=== PATIENT | female | born 1995 | race Caucasian/White ===

== ENCOUNTER 2018-06-09 11:03 | Emergency (ER) | payer BC ==
[~2018-06-09] VITALS: Ht 167.6 cm; Wt 62.0 kg
[~2018-06-09 11:03] MED LIST: IBUP-1573 PO
--- NOTE | 2018-06-09 11:57 | NUR ---
pt is 23 yo female c/o chest pain started today at 0940 while at work, pt said 3 weeks ago she fainted at work, c/o "stabbing chest pain lasts 10 minutes...and then pressure like 5 pound weight on my chest and then i become dizzy", recently established with Dr Oleary and has echo end of month, pt also c/o feeling tired, headache, Dr Pinto at bedside
[2018-06-09 12:03] LABS: BASOPHILS % (AUTO) 0.4 % (0-1); EOSINOPHILS % (AUTO) 0.8 % (0-6); HEMATOCRIT 41.6 % (35.0-45.0); HEMOGLOBIN 14.1 g/dl (12.0-16.0); LYMPHOCYTES # (AUTO) 1.3 X10'3 (1.1-4.8); LYMPHOCYTES % (AUTO) 28.7 % (21-51); MEAN CORPUSCULAR HEMOGLOBIN 32.6 PG (27.0-31.0); MEAN CORPUSCULAR HGB CONC 33.9 g/dL (33.0-36.5); MEAN CORPUSCULAR VOLUME 95.9 FL (78-98); MEAN PLATELET VOLUME 7.2 FL (7.4-10.4); MONOCYTES # (AUTO) 0.5 X10'3 (0-0.9); MONOCYTES % (AUTO) 10.2 % (2-12); NEUTROPHILS # (AUTO) 2.8 X10'3 (1.8-7.7); NEUTROPHILS % (AUTO) 59.9 % (42-75); PLATELET COUNT 220 X10'3 (140-440); RED BLOOD COUNT 4.34 X10'6 (4.20-5.60); RED CELL DISTRIBUTION WIDTH 13.2 % (11.5-14.5); WHITE BLOOD COUNT 4.6 X10'3 (4.5-11.0)
[2018-06-09 12:16] LABS: ALANINE AMINOTRANSFERASE 37 U/L (12-78); ALBUMIN/GLOBULIN RATIO 1.2 (1.1-1.5); ALKALINE PHOSPHATASE 66 IU/L (46-116); ANION GAP 9 (8-16); ASPARTATE AMINO TRANSFERASE 34 U/L (10-37); BILIRUBIN,TOTAL 0.7 MG/DL (0.1-1.0); BLOOD UREA NITROGEN 7 MG/DL (7-18); BUN/CREATININE RATIO 8.5 (6.6-38.0); CHLORIDE 103 MMOL/L (99-107); CREATININE 0.82 MG/DL (0.40-0.90); GLUCOSE 118 MG/DL (70-104); POTASSIUM 3.4 MMOL/L (3.5-5.1); SODIUM 139 MMOL/L (135-145); TOTAL CARBON DIOXIDE 26.9 MMOL/L (24-32); TOTAL PROTEIN 7.3 G/DL (6.4-8.2); eGFR 85 ML/MIN
[2018-06-09 12:17] LABS: INR 1.3 INR; PARTIAL THROMBOPLASTIN TIME 28 SECONDS (22-32); PROTHROMBIN TIME 13.3 SECONDS (9.0-12.0)
--- NOTE | 2018-06-09 12:45 | NUR ---
PT AMB WITH STEADY GAIT TO RESTROOM, C/O FEELING DIZZINESS, NO CHEST PAIN
--- NOTE | 2018-06-09 12:59 | NUR ---
dr andrade at bedside, pt c/o chest pain HR is 140-150s, EKG being done
--- NOTE | 2018-06-09 13:04 | NUR ---
HR 90s, pt said she feels better, Dr Pinto aware
[2018-06-09] MEDS ORDERED: fentaNYL/PF 50MCG/1 ML 2ML syringe IV ONE (13:05)
[2018-06-09 13:07] LABS: D-DIMER 0.42 MG/L FEU (0-0.50)
[2018-06-09 13:17] LABS: URINE HCG NEGATIVE (NEG)
[2018-06-09] MEDS ORDERED: LORazepam 2 mg/ml vial IV ONE (13:25)
--- NOTE | 2018-06-09 13:36 | NUR ---
pt is resting quietly on gurney, medicated per MD order
[2018-06-09] MEDS ORDERED: metoprolol tartrate 1mg/ml inj IV ONE (13:50)
--- NOTE | 2018-06-09 13:51 | NUR ---
pt c/o fast heart rate lasting approx 1 minute, Dr Pinto aware,
--- NOTE | 2018-06-09 13:55 | NUR ---
Dr Pinto at bedside to talk with pt
[2018-06-09] MEDS ORDERED: METO-539 PO (14:50)
[2018-06-09 15:10] VITALS: BP 127/93
== END 2018-06-09 15:13 | disposition home or self-care (01) ==
LOC: ER 11:04
DX: I47.1 Supraventricular tachycardia (principal); R42 Dizziness and giddiness; I10 Essential (primary) hypertension; I25.2 Old myocardial infarction; F17.200 Nicotine dependence, unspecified, uncomplicated; Z79.899 Other long term (current) drug therapy
CPT/HCPCS: 36415; 71045; 80053; 81025; 82948; 84484; 85025; 85379; 85610; 85730; 93005; 96374; 96375; 99284; J2060; J3010; J3490

== ENCOUNTER 2018-09-11 08:01 | Emergency (ER) | payer BC ==
[~2018-09-11] VITALS: Ht 167.6 cm; Wt 54.5 kg
[2018-09-11 08:07] VITALS: BP 142/96
== END 2018-09-11 09:10 | disposition home or self-care (01) ==
LOC: ER 08:01
DX: M62.838 Other muscle spasm (principal); F10.10 Alcohol abuse, uncomplicated; E86.0 Dehydration; I25.2 Old myocardial infarction; Z88.5 Allergy status to narcotic agent; Z79.899 Other long term (current) drug therapy
CPT/HCPCS: 99281